=== PATIENT | male | born 1990 | race Caucasian/White ===

== ENCOUNTER 2025-01-28 11:32 | Emergency (ER) | payer OTHER, SELFPAY ==
--- NOTE | ~2025-01-28 | XR_ITS ---
EXAMINATION: XR abdomen/kub 1V DATE: 01/28/2025 12:30 INDICATION: Bilateral flank pain and nausea TECHNIQUE: A supine view of the abdomen on 2 radiographs was obtained. COMPARISON: None. FINDINGS: 2 mm calcification defect over the left hemipelvis near the expected location of the distal ureter/ur eterovesicular junction potentially representing a ureteral stone. 3 mm density potentially an additi onal renal stone projecting over the lower pole of the right kidney. Normal bowel gas pattern. Bones are unremarkable. IMPRESSION: 1. All densities potentially representing a 3 mm stone at the lower pole the right kidney and [address] one in the region of the left ureterovesicular junction. Reviewed, dictated and finalized at location B. IMPRESSION: 1. All densities potentially representing a 3 mm stone at the lower pole the ri ght kidney and 2 mm stone in the region of the left ureterovesicular junction.
[2025-01-28 11:44] VITALS: BP 136/96; PULSE 98; RESP 16; TEMP 35.9; O2SAT 100
[2025-01-28 12:32] LABS: EDUAAPPEAR Clear; EDUABILI Negative (Negative); EDUABLOOD Negative (Negative); EDUACOLOR1 Yellow; EDUAGLUCOSE Negative (Negative); EDUAKETONE Negative (Negative); EDUALEUKO Negative (Negative); EDUANITRATE Negative (Negative); EDUAPH 5.5; EDUAPROTEIN Negative (Negative); EDUASPGRAVITY 1.005; EDUAUROBILI 0.2
--- NOTE | 2025-01-28 12:36 | ED.GENADULT ---
HPI - General Adult General Chief complaint: Urogenital-Male Stated complaint: BILAT KIDNEY PAIN/NAUSEA Time Seen by Provider: 01/28/25 12:10 Source: patient and RN notes reviewed Mode of arrival: ambulatory Limitations: no limitations History of Present Illness HPI narrative: 34-year-old male presents [facility] complaining of bilateral flank pain x1 day. Patient stated he developed bilateral flank pain yesterday in the evening. She denies lifting or injuring his back. Patient reports the pain feels like something is squeezing in his back. Patient denies any urinary symptoms or blood in his urine. Patient did report he had developed nausea today. Denies any abdominal pain, vomiting,, diarrhea, constipation, or blood in his stools. Patient rates his pain 5/10. Patient states that Tylenol helps with this pain. Patient states he had a history of kidney stones as a child and was told he had a large urethra. Last bowel movement was yesterday and normal he reports. Related Data Home Medications ?Medication ?Instructions ?Recorded ?Confirmed ?Last Taken ?Type lisdexamfetamine 40 mg capsule 40 mg PO DAILY 01/28/25 01/28/25 Unknown History (Vyvanse) Allergies Allergy/AdvReac Type Severity Reaction Status Date / Time No Known Allergies Allergy Unverified 01/28/25 11:40 Review of Systems Review of Systems: CONSTITUTIONAL: Denies fever, chills, or sweats. EYES: Denies visual changes, redness, or discharge. ENT: Denies rhinorrhea, congestion, sore throat, or otalgia. CARDIOVASCULAR: Denies chest pain, palpitations, or edema. RESPIRATORY: Denies cough or dyspnea. GASTROINTESTINAL: Positive for nausea. Denies abdominal pain, blood in stool, vomiting, constipation, or diarrhea. GENITOURINARY: Denies dysuria or hematuria. SKIN: Denies rash or itching. MUSCULOSKELETAL: Denies back pain, joint pain, or myalgia. Positive for bilateral flank pain NEUROLOGIC: Denies headache, numbness, or weakness. PSYCHIATRIC: Denies anxiety or depression. All other systems reviewed are negative, except as documented in HPI. PMFSH Comments At the time of my signature, I reviewed and agree with the nursing past medical, surgical, social, and family history. There is no relevant family history pertinent to the patient complaint. Exam Narrative: GENERAL: This is a well-nourished, well-developed adult, in no apparent distress. They are non ill-appearing, nontoxic appearing. HEAD: normocephalic, atraumatic. EYES: Sclera clear/white. Vision is grossly intact. EARS: External ears normal, Hearing grossly intact. NOSE: External nose normal THROAT: Mucous membranes moist, NECK: Normal range of motion CARDIOVASCULAR: Regular rate and rhythm without murmurs, gallops, or rubs. RESPIRATORY: Clear to auscultation. Breath sounds equal bilaterally. No wheezes, rales, or rhonchi. GASTROINTESTINAL: Abdomen soft, non-tender, nondistended. Bowel sounds are active. No hepato-splenomegaly, or palpable masses. No guarding. No rebound tenderness. Negative obturator sign. Negative McBurney's point SKIN: warm, Dry, intact with no suspicious lesions or rash, good texture and turgor. NEURO: awake, alert, and oriented to person, place and time. There were no obvious focal neurologic abnormalities. EXTREMITIES: No joint tenderness, effusion, or edema noted. BACK: Nontender without deformity. No CVA tenderness. Course Course Level of Care: Express Care Visit Vital Signs Vital signs: Vital Signs Temperature 96.7 F L 01/28/25 11:44 Pulse Rate 98 01/28/25 11:44 Respiratory Rate 16 01/28/25 11:44 Blood Pressure 136/96 H 01/28/25 11:44 Pulse Oximetry 100 01/28/25 11:44 Temperature 96.7 F L 01/28/25 11:44 Pulse Rate 98 01/28/25 11:44 Respiratory Rate 16 01/28/25 11:44 Blood Pressure 136/96 H 01/28/25 11:44 Pulse Oximetry 100 01/28/25 11:44 Reviewed Medical Decision Making MDM Narrative Medical decision making narrative: Patient's urine dipstick was negative for any signs of infection or hematuria. Offered patient a KUB to assess for possible kidney stones however he was advised that CT imaging would be better to evaluate for kidney stones. Patient was agreeable to have a KUB. X-ray KUB revealed an approximately 2 mm stone likely in his right lower pole of his kidney. There is also an approximately a 3 mm stone likely in his left UVJ. Discussed findings with patient and offered him a transfer to the ER for further evaluation and he declined at this time. Strict ED precautions were discussed and patient verbalized understanding. Will treat him with Flomax, ketorolac as needed for pain, and Zofran as needed for nausea. Differential Diagnosis Differential Diagnosis: renal stone, urinary tract infection, prostatitis Vital Signs Vital Signs: Vital Signs Temperature 96.7 F L 01/28/25 11:44 Pulse Rate 98 01/28/25 11:44 Respiratory Rate 16 01/28/25 11:44 Blood Pressure 136/96 H 01/28/25 11:44 Pulse Oximetry 100 01/28/25 11:44 Temperature 96.7 F L 01/28/25 11:44 Pulse Rate 98 01/28/25 11:44 Respiratory Rate 16 01/28/25 11:44 Blood Pressure 136/96 H 01/28/25 11:44 Pulse Oximetry 100 01/28/25 11:44 Lab Data Labs: Lab Results 01/28/25 Range/Units 12:29 POC Urine Color Yellow POC Urine Clarity Clear POC Urine pH 5.5 POC Ur Specif [place] 1.005 POC Urine Protein Negative (Negative) POC Ur Glucose (UA) Negative (Negative) POC Urine Ketones Negative (Negative) POC Urine Blood Negative (Negative) POC Urine Nitrite Negative (Negative) POC Urine Bilirubin Negative (Negative) POC Urine Urobilinogen 0.2 POC U Leukocyte Esteras Negative (Negative) Imaging Data Radiologist's impression: INDICATION: Bilateral flank pain and nausea TECHNIQUE: A supine view of the abdomen on 2 radiographs was obtained. COMPARISON: None. FINDINGS: 2 mm calcification defect over the left hemipelvis near the expected location of the distal ureter/ureterovesicular junction potentially representing a ureteral stone. 3 mm density potentially an additional renal stone projecting over the lower pole of the right kidney. Normal bowel gas pattern. Bones are unremarkable. IMPRESSION: 1. All densities potentially representing a 3 mm stone at the lower pole the right kidney and 2 mm stone in the region of the left ureterovesicular junction. Critical Care Time Critical Care Time Critical Care Time: No Discharge Plan Discharge Clinical Impression: Bilateral kidney stones, Ureteral calculus, left Patient Disposition: Home Condition: Stable Instructions: Kidney Stones (ED) Additional Instructions: Your x-ray showed a 3 mm kidney stone in your right kidney and a 2 mm stone in your left ureter. Please strain your urine. Please take Flomax as directed. You can take ketorolac as needed for pain, do not take ibuprofen or any other NSAIDs while taking ketorolac. You may also take Tylenol for pain. Take Zofran as needed for nausea. Please follow-up with primary care provider a urologist for further evaluation. If he develops worsening pain, fevers, burning with urination or any other concerns please go to the emergency department immediately. Patient Language: [place] Prescriptions: New ketorolac 10 mg tablet 10 mg PO Q6H PRN (Reason: pain) 5 Days Qty: 20 0RF Rx Instructions: maximum total duration of 5 days from all oral, intranasal, or parenteral formulations tamsulosin [Flomax] 0.4 mg capsule 0.4 mg PO HS 30 Days Qty: 30 0RF ondansetron 4 mg tablet,disintegrating 4 mg PO Q8H PRN (Reason: nausea and vomiting) 3 Days Qty: 14 0RF No Action lisdexamfetamine [Vyvanse] 40 mg capsule 40 mg PO DAILY Follow-up/Referrals: Emir Khan MD [Physician] - Edgardo Mike MD [Primary Care Provider] - Time of Disposition: 12:50
== END 2025-01-28 12:55 | disposition home or self-care (01) ==
PROVIDERS: PCP Emergency Medicine
DX: N20.2 Calculus of kidney with calculus of ureter (principal); F90.9 Attention-deficit hyperactivity disorder, unspecified type
CPT/HCPCS: 74018; 81003; 99203; G0463

== ENCOUNTER 2025-02-01 14:01 | Outpatient (CLI) | payer OTHER, SELFPAY ==
[2025-02-01 18:32] LABS: Add Urine Microscopic? NO; Appearance Urine Clear (Clear); Bilirubin Urine Negative (Negative); Blood Urine Negative (Negative); Color Urine Yellow (Yellow); Glucose Urine UA Negative (Negative); Ketones Urine Negative (Negative); Leukocyte Esterase Ur Negative LEU/UL (Negative); Nitrate Urine Negative (Negative); Protein Urine Negative (Negative); Specific Grav Ur 1.008 (1.001-1.035); Urobilinogen Urine 0.2 mg/dL (<2.0); pH Urine 7.5 (5.0-9.0)
[2025-02-01 18:38] LABS: Alanine Aminotransferase 44 U/L (6-50); Albumin Level 4.9 g/dL (3.5-5.1); Alkaline Phosphatase 47 U/L (38-126); Anion Gap 12 mmol/L (4-12); Aspartate Amino Transferase 57 U/L (17-59); Bilirubin,Total 1.3 mg/dL (0.2-1.3); Blood Urea Nitrogen 16 mg/dL (9-20); Calcium 9.5 mg/dL (8.4-10.2); Carbon Dioxide 30 mmol/L (22-30); Chloride 98 mmol/L (98-107); Cholesterol 164 mg/dL (0-200); Estimated Glomerular Filt Rate > 60; Glucose 89 mg/dL (65-110); HDL Direct 53 mg/dL; Potassium 4.2 mmol/L (3.4-5.0); Sodium 140 mmol/L (137-145); Triglycerides 82 mg/dL (<150)
[2025-02-01 18:49] LABS: LDL Cholesterol Direct 76 mg/dL
[2025-02-01 18:53] LABS: Basophils Absolute Auto 0.1 K/mm3 (0.0-0.1); Basophils Percent Auto 0.6 % (0.2-1.2); Eosinophils Absolute Auto 0.1 K/mm3 (0-0.3); Hematocrit 52.1 % (42.0-52.0); Hemoglobin 17.1 g/dL (14.0-18.0); Immature Granulocyte Absolute 0.02 K/mm3 (0.00-0.031); Immature Granulocyte Percent A 0.2 % (0-0.5); Lymphocytes Absolute Auto 1.53 K/mm3 (0.9-3.2); Lymphocytes Percent Auto 18.3 % (18.3-44.2); Mean Corpuscular HGB Conc 32.8 g/dl (32-36); Mean Corpuscular Hemoglobin 28.8 pg (26-34); Mean Corpuscular Volume 87.9 fl (80-100); Mean Platelet Volume 10.6 fl (7.4-10.4); Monocytes Absolute Auto 0.6 K/mm3 (0.1-0.6); Monocytes Percent Auto 6.7 % (2.6-8.5); Neutrophils Absolute Auto 6.1 K/mm3 (1.3-6.7); Neutrophils Percent Auto 73.2 % (45.5-73.1); Platelet Count Result 266 k/mm3 (150-375); Red Blood Count 5.93 M/mm3 (4.6-6.20); Red Cell Distribution Width 12.5 % (11.5-14.5); White Blood Count 8.4 K/mm3 (4.5-10.0)
[2025-02-01 19:23] LABS: Erythrocyte Sedimentation Rate 1 mm/hr (0-20)
== END 2025-02-01 14:02 | disposition home or self-care (01) ==
LOC: ANHGOSHLAB 14:02
PROVIDERS: PCP Internal Medicine; Visit Provider Internal Medicine
DX: N20.0 Calculus of kidney (principal); Z13.220 Encounter for screening for lipoid disorders
CPT/HCPCS: 36415; 80053; 80061; 81003; 82172; 85025; 85652

== ENCOUNTER 2025-02-01 14:30 | Outpatient (CLI) | payer OTHER, SELFPAY ==
--- NOTE | ~2025-02-01 | CT_ITS ---
CLINICAL INDICATION: Right flank pain COMPARISON: Reference is made to an abdominal plain film evaluation dated 01/28/2025. TECHNIQUE: Multiple contiguous axial images of the abdomen and pelvis were performed both prior to an d following the administration of 100 mL Omnipaque-350 intravenous contrast The dose-length product (DLP) was 1367.30 mGy-cm. Automated exposure control and iterative reconstruction technique were employed. FINDINGS/OBSERVATIONS: Visualized lower thorax: The bilateral lung bases are clear. The heart is of normal size, without pericardial effusion. Small hiatal hernia is present. Liver: The liver demonstrates homogeneous enhancement and is not enlarged. Gallbladder and biliary system: The gallbladder is only minimally distended, and otherwise unremarkable. Pancreas: The pancreas enhances homogeneously without ductal dilatation. Spleen: The spleen enhances homogeneously and is not enlarged. Kidneys: The bilateral kidneys enhance symmetrically without hydronephrosis or renal calculi. The right ureter demonstrates significant dilatation along its course beginning at approximately the level of L3, and into the bladder. This does not represent peristalsis as it is continuous with or without contrast. No evidence of obst ruction is appreciated. Contrast flows freely into the bladder in the prone position. No filling defects are present within the bilateral kidneys or ureters. Adrenal glands: Unremarkable. Gastrointestinal tract: Trace fecal stasis within the colon. Appendix: The air-filled appendix is of normal caliber (axial series, images 126 through 138). Vasculature: Unremarkable. Lymph nodes: No pathologically enlarged or morphologically suspicious lymph nodes within the retroperitoneum or at the root of the mesentery. Pelvic structures:No bladder calculi are identified. Delayed imaging demonstrates opacification of the bladder in its entirety, without a filling defect. The prostate gland is not enlarged. Body wall and musculoskeletal: Small fat-containing umbilical hernia. No significant degenerative disease within the lower thoracic or lumbosacral spine. IMPRESSION: No renal or ureteral calculi. Dilatation of the distal right ureter, without obstruction, which is continuous on all contrast and n oncontrast imaging, a finding of uncertain clinical significance. Reviewed, dictated and finalized at location A. IMPRESSION: No renal or ureteral calculi. Dilatation of the distal right ureter, without obstruction, which is continuous on all contrast and noncontrast imaging, a finding of uncertain clinical signi ficance.
== END 2025-02-01 14:31 | disposition home or self-care (01) ==
LOC: ANHIMG 14:32
PROVIDERS: PCP Internal Medicine; Visit Provider Internal Medicine
DX: N20.0 Calculus of kidney (principal); Z98.890 Other specified postprocedural states
CPT/HCPCS: 74178; Q9967

== ENCOUNTER 2025-08-04 11:26 | Outpatient (CLI) | payer OTHER, SELFPAY ==
[2025-08-09 18:08] LABS: Summary Report (Summary) FINAL (.)
== END 2025-08-04 11:27 | disposition home or self-care (01) ==
LOC: ANHGOSHLAB 11:27
PROVIDERS: PCP Internal Medicine; Visit Provider Nurse Practitioner
DX: F98.8 Other specified behavioral and emotional disorders with onset usually occurring in childhood and adolescence (principal)
CPT/HCPCS: 80307